=== PATIENT | male | born 1970 | race Hispanic/Latino ===

== ENCOUNTER 2018-10-31 06:06 | Inpatient (IN) | payer OTHER, SELFPAY ==
[2018-10-31] MEDS ORDERED: Ketorolac Tromethamine 30 MG/ML VIAL ONE (06:11)
[2018-10-31] MEDS ORDERED: Fentanyl 100 MCG/2 ML VIAL ONE ×3 (06:15→06:46)
[2018-10-31] MEDS ORDERED: Adacel (T-DAP) 0.5 ML SYRINGE ONE (06:21)
[2018-10-31 06:31] LABS: Hemoglobin 17.5 g/dL (14.0-18.0); Mean Corpuscular HGB CONC 34.4 g/dL (32.0-36.0); Mean Corpuscular Hemoglobin 30.3 pg (27.0-31.0); Mean Corpuscular Volume 88.1 fL (78.0-98.0); Mean Platelet Volume 7.3 fL (7.4-10.4); Platelet Count 310 thou/uL (130-400); RBC Distribution Width 11.7 % (11.5-14.5); Red Blood Cell (RBC) Count 5.78 mill/uL (4.70-6.10); White Blood Cell (WBC) Count 21.9 thou/uL (4.8-10.8)
[2018-10-31] MEDS ORDERED: Lidocaine 1% PF 5 ML VIAL ONE (06:36)
[2018-10-31 06:41] LABS: PTT 25.7 SEC (22.9-36.1); Prothrombin Time 13.1 SEC (12.0-14.7)
[2018-10-31 06:45] LABS: ALT (SGPT) 108 U/L (8-55); AST (SGOT) 84 U/L (5-34); Acetaminophen Less than 6.0 mcg/mL (10.0-30.0); Albumin 4.2 g/dL (3.5-5.0); Alcohol Less than 10 mg/dL (Less than 10); Alkaline Phosphatase 57 U/L (40-150); Anion Gap 10 mmol/L (10-20); BUN (Urea Nitrogen) 24 mg/dL (8.9-20.6); Bilirubin, Total 0.5 mg/dL (0.2-1.2); Calc. Creatinine Clearance 0 mL/min (70-130); Carbon Dioxide 26 mmol/L (22-29); Chloride 105 mmol/L (98-107); Estimated GFR-MDRD 63; Globulin 2.9 g/dL (2.4-3.5); Glucose 157 mg/dL (70-105); Magnesium 2.1 mg/dL (1.6-2.6); Potassium 4.2 mmol/L (3.5-5.1); Protein, Total 7.1 g/dL (6.0-8.3); Salicylate Less than 8.0 mg/dL (15.0-30.0); Sodium 137 mmol/L (136-145)
[2018-10-31] MEDS ORDERED: Promethazine HCl 25 MG/ML VIAL IM PRN (06:52)
[2018-10-31] MEDS ORDERED: Ondansetron PF 4 MG/2 ML Vial IVP PRN (06:52)
[2018-10-31] MEDS ORDERED: Dextrose 5% in Water 1,000 ML IV PRN (06:52)
[2018-10-31] MEDS ORDERED: hydrALAZINE 20 MG/ML VIAL SLOW IVP PRN (06:52)
[2018-10-31] MEDS ORDERED: Dextrose 50% Abboject 50 ML SYRINGE SLOW IVP PRN (06:52)
[2018-10-31] MEDS ORDERED: Rib Fracture Protocol PO SCH (07:00)
[2018-10-31 07:36] LABS: Band 12 % (5-11); Eosinophils 1 % (0-10); Lymphocytes 24 % (21-51); MDiff Complete? YES; Monocytes 1 % (0-10); Neutrophil 61 % (42-75); RBC Morphology Normal; Reactive Lymphocytes 1 % (0-10)
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
[2018-10-31 08:16] LABS: Bacteria/HPF None Seen HPF (None Seen); Bilirubin Negative (Negative); Blood, Urine 1+ (Negative); Clarity Clear (Clear); Glucose, Urine (Dipstick) Normal (Negative); Leukocyte Negative Leu/uL (Negative); Nitrite Negative (Negative); Protein, Urine (Dipstick) Negative (Neg-Trace); RBC/HPF 0-3 HPF (0-3); Squamous Epithelial None Seen HPF (0-3); Urobilinogen Normal mg/dL (Less than 2); WBC/HPF 0-3 HPF (0-3)
[2018-10-31 08:25] LABS: Amphetamine Not Detected (NotDetected); Barbiturates Screen Not Detected (NotDetected); Benzodiazepine Screen Not Detected (NotDetected); Cocaine Metabolite Screen Not Detected (NotDetected); Medtox Control Line Valid? VALID (VALID); Medtox Reader # READER 4; Methadone Not Detected (NotDetected); Methamphetamine Not Detected (NotDetected); Opiate Screen Not Detected (NotDetected); Oxycodone Screen Not Detected (NotDetected); Phencyclidine (PCP) Not Detected (NotDetected); THC/Cannabinoid Screen Not Detected (NotDetected); Tricyclic Screen Not Detected (NotDetected)
[2018-10-31] MEDS ORDERED: Morphine 4 MG/ML VIAL ONE ×2 (08:50→09:53)
[2018-10-31] MEDS ORDERED: Ondansetron PF 4 MG/2 ML Vial ONE (08:54)
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
[2018-10-31] MEDS ORDERED: Lidocaine 1% w/Epinephrine 1:100K 20 ML VIAL ONE (09:54)
--- NOTE | 2018-10-31 10:03 | RAD ---
PELVIS RADIOGRAPH FRONTAL: 10/31/2018 HISTORY: Injury, trauma, pain. COMPARISON: None. FINDINGS: There is no widening of the sacroiliac joints or pubic symphysis. The femoral heads project normally over their respective acetabulum. No displaced pelvic fracture is seen. IMPRESSION: No displaced fracture within the pelvis. POS: OFF
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
[2018-10-31] MEDS: Morphine 4 MG/ML VIAL SLOW IVP PRN ×2 (12:41→15:25)
[2018-10-31] MEDS: Sodium Chloride 0.9% 1,000 ML IV SCH ×3 (12:46→17:40)
[2018-10-31] MEDS: Ibuprofen 800 MG TAB PO SCH ×2 (12:47→18:56)
[2018-10-31] MEDS: traMADol HCl 50 MG TAB PO SCH ×3 (12:47→23:18)
[2018-10-31] MEDS: Acetaminophen 500 MG TAB PO SCH ×3 (12:47→23:18)
[2018-10-31 12:50] VITALS: BMI 33.0
[2018-10-31] MEDS ORDERED: ISOVUE-370 76%-LOCM 1 ML ONE (15:24)
[2018-10-31] MEDS: Gabapentin 300 MG CAP PO SCH ×2 (16:34→23:18)
[2018-10-31] MEDS ORDERED: Acetaminophen 1,000 MG in Premix Bag 1 BAG IVPB SCH (17:00)
[2018-10-31] MEDS ORDERED: Ketorolac Tromethamine 30 MG/ML VIAL IVP SCH (17:00)
[2018-11-01] MEDS: Ibuprofen 800 MG TAB PO SCH ×4 (01:20→18:41)
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
[2018-11-01] MEDS: Sodium Chloride 0.9% 1,000 ML IV SCH (03:08)
[2018-11-01] MEDS: traMADol HCl 50 MG TAB PO SCH ×3 (05:58→18:41)
[2018-11-01] MEDS: Acetaminophen 500 MG TAB PO SCH ×3 (05:58→18:41)
[2018-11-01 06:16] LABS: #Lymphocytes 1.6 thou/uL (1.20-3.40); #Monocytes 1.2 thou/uL (0.11-0.59); %Eosinophils 0.1 % (0.0-10.0); %Lymphocytes 13.6 % (21.0-51.0); %Neutrophils 76.2 % (42.0-75.0); Hemoglobin 14.9 g/dL (14.0-18.0); Mean Corpuscular HGB CONC 32.8 g/dL (32.0-36.0); Mean Corpuscular Volume 88.6 fL (78.0-98.0); Mean Platelet Volume 7.4 fL (7.4-10.4); Platelet Count 236 thou/uL (130-400); RBC Distribution Width 11.9 % (11.5-14.5); Red Blood Cell (RBC) Count 5.12 mill/uL (4.70-6.10); White Blood Cell (WBC) Count 11.8 thou/uL (4.8-10.8)
[2018-11-01 06:30] LABS: Anion Gap 10 mmol/L (10-20); BUN (Urea Nitrogen) 20 mg/dL (8.9-20.6); Calc. Creatinine Clearance 177 mL/min (70-130); Calcium 8.4 mg/dL (7.8-10.44); Carbon Dioxide 24 mmol/L (22-29); Chloride 105 mmol/L (98-107); Estimated GFR-MDRD Greater than 90; Glucose 119 mg/dL (70-105); Phosphorus 2.9 mg/dL (2.3-4.7); Potassium 3.8 mmol/L (3.5-5.1); Sodium 135 mmol/L (136-145)
[2018-11-01] MEDS: Gabapentin 300 MG CAP PO SCH ×3 (08:46→20:38)
[2018-11-01] MEDS: Enoxaparin Sodium 30 MG/0.3 ML SYRINGE SC SCH ×2 (08:46→20:38)
--- NOTE | 2018-11-01 08:53 | RAD ---
PORTABLE CHEST ONE VIEW: HISTORY: Right hemopneumothorax. COMPARISON: 10/31/2018 FINDINGS: Right chest tube in place. Slightly improving subcutaneous emphysema. Multiple right rib fractures. There is no significant pneumothorax, although certainly a small pneumothorax would be very difficu lt to exclude, given the pleural and parenchymal opacity changes and the extensive subcutaneous emphy sema. Continued short-term followup. POS: [facility]
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
[2018-11-01] MEDS: Cyclobenzaprine 10 MG TAB PO PRN (14:44)
[2018-11-01] MEDS: Senokot S 8.6-50 MG TAB PO SCH (20:38)
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
[2018-11-02] MEDS: Ibuprofen 800 MG TAB PO SCH ×5 (00:25→23:49)
[2018-11-02] MEDS: Acetaminophen 500 MG TAB PO SCH ×5 (00:25→23:48)
[2018-11-02] MEDS: traMADol HCl 50 MG TAB PO SCH ×5 (00:25→23:49)
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
[2018-11-02] MEDS: Senokot S 8.6-50 MG TAB PO SCH ×2 (09:15→20:51)
[2018-11-02] MEDS: Polyethylene Glycol 3350 17 GM Packet PO SCH (09:17)
[2018-11-02] MEDS: Gabapentin 300 MG CAP PO SCH ×3 (09:17→20:51)
[2018-11-02] MEDS: Enoxaparin Sodium 30 MG/0.3 ML SYRINGE SC SCH ×2 (09:18→20:51)
[2018-11-02] MEDS: cloNIDine 0.1 MG TAB PO SCH ×3 (10:32→21:39)
[2018-11-02] MEDS: Cyclobenzaprine 10 MG TAB PO PRN (20:51)
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
[2018-11-03] MEDS: cloNIDine 0.1 MG TAB PO SCH ×4 (04:13→20:21)
[2018-11-03] MEDS: Acetaminophen 500 MG TAB PO SCH ×4 (05:48→23:24)
[2018-11-03] MEDS: traMADol HCl 50 MG TAB PO SCH ×4 (05:49→23:23)
[2018-11-03] MEDS: Ibuprofen 800 MG TAB PO SCH ×4 (05:49→23:23)
[2018-11-03] MEDS: Senokot S 8.6-50 MG TAB PO SCH ×2 (08:59→20:20)
[2018-11-03] MEDS: Enoxaparin Sodium 30 MG/0.3 ML SYRINGE SC SCH ×2 (08:59→20:19)
[2018-11-03] MEDS: Gabapentin 300 MG CAP PO SCH ×3 (08:59→20:21)
--- NOTE | 2018-11-03 08:59 | RAD ---
CHEST 1 VIEW: INDICATION: History of followup right-sided pneumothorax. FINDINGS: Small right apical pneumothorax persists. Right side thoracostomy tube and chest wall emphysema is s imilar appearing. Elevation of the right hemidiaphragm is stable. Heart size is stable. Left lung is clear. IMPRESSION: Stable right apical pneumothorax. POS: OFF
[2018-11-03] MEDS: Polyethylene Glycol 3350 17 GM Packet PO SCH (09:03)
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
[2018-11-03] MEDS: Cyclobenzaprine 10 MG TAB PO PRN (20:20)
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
[2018-11-04] MEDS: cloNIDine 0.1 MG TAB PO SCH ×4 (04:53→20:23)
[2018-11-04] MEDS: Ibuprofen 800 MG TAB PO SCH ×4 (04:55→23:27)
[2018-11-04] MEDS: traMADol HCl 50 MG TAB PO SCH ×4 (04:55→23:27)
[2018-11-04] MEDS: Acetaminophen 500 MG TAB PO SCH ×4 (04:56→23:27)
--- NOTE | 2018-11-04 08:04 | RAD ---
EXAM: Portable chest PROVIDED CLINICAL HISTORY: History of pneumothorax COMPARISON: 11/03/2018 FINDINGS: Significant interval change with respect to the prior examination is not apparent. IMPRESSION: As above.
[2018-11-04] MEDS: Senokot S 8.6-50 MG TAB PO SCH ×2 (09:11→20:24)
[2018-11-04] MEDS: Gabapentin 300 MG CAP PO SCH ×3 (09:11→20:24)
[2018-11-04] MEDS: Polyethylene Glycol 3350 17 GM Packet PO SCH (09:11)
[2018-11-04] MEDS: Enoxaparin Sodium 30 MG/0.3 ML SYRINGE SC SCH ×2 (09:17→20:26)
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
--- NOTE | 2018-11-05 00:36 | EKG ---
Test Reason : Blood Pressure : / mmHG Vent. Rate : 108 BPM Atrial Rate : 108 BPM P-R Int : 152 ms QRS Dur : 082 ms QT Int : 338 ms P-R-T Axes : 052 033 029 degrees QTc Int : 452 ms Sinus tachycardia Low voltage QRS Inferior infarct , age undetermined Abnormal ECG Confirmed by OLAMIDE MORAN ([id number]), editor greeting card SARAH LEUNG ([id number]) on 11/05/2018 12:35:17 AM Referred By: Confirmed By:OLAMIDE MORAN
[2018-11-05] MEDS: cloNIDine 0.1 MG TAB PO SCH ×3 (04:25→11:26)
[2018-11-05] MEDS: Acetaminophen 500 MG TAB PO SCH ×2 (05:19→11:26)
[2018-11-05] MEDS: Ibuprofen 800 MG TAB PO SCH ×2 (05:19→11:26)
[2018-11-05] MEDS: traMADol HCl 50 MG TAB PO SCH ×2 (05:20→11:27)
--- NOTE | 2018-11-05 07:34 | RAD ---
EXAM: Portable chest PROVIDED CLINICAL HISTORY: History of pneumothorax COMPARISON: 11/04/2018 FINDINGS: Interval removal of right-sided chest tube. Additional significant interval change with respect to th e prior examination is not apparent. IMPRESSION: As above.
[2018-11-05] MEDS: Senokot S 8.6-50 MG TAB PO SCH (08:54)
[2018-11-05] MEDS: Gabapentin 300 MG CAP PO SCH (08:54)
[2018-11-05] MEDS: Enoxaparin Sodium 30 MG/0.3 ML SYRINGE SC SCH (08:54)
[2018-11-05] MEDS: Polyethylene Glycol 3350 17 GM Packet PO SCH (08:54)
[2018-11-05 11:45] VITALS: BP 135/90; TEMP 97.3
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
== END 2018-11-05 11:45 | disposition home or self-care (01) | DRG 200 ==
LOC: ERS 06:06 → ERHOLD 07:24 → IMCU/EMU 11:56 → SURG B 11-01 13:43
PROVIDERS: ADMIT Surgery; ATTEND Surgery
PROC: 0W9930Z Drainage of Right Pleural Cavity with Drainage Device, Percutaneous Approach (ICD-10-PCS; principal; 2018-10-31)
DX: S27.2XXA Traumatic hemopneumothorax, initial encounter (principal); S22.41XA Multiple fractures of ribs, right side, initial encounter for closed fracture; S27.321A Contusion of lung, unilateral, initial encounter; S51.011A Laceration without foreign body of right elbow, initial encounter; S42.101A Fracture of unspecified part of scapula, right shoulder, initial encounter for closed fracture; Z96.611 Presence of right artificial shoulder joint; V29.9XXA Motorcycle rider (driver) (passenger) injured in unspecified traffic accident, initial encounter; Y93.I9 Activity, other involving external motion; Y92.415 Exit ramp or entrance ramp of street or highway as the place of occurrence of the external cause; Z90.49 Acquired absence of other specified parts of digestive tract
CPT/HCPCS: 36415; 36430; 51702; 70450; 71045; 71260; 72125; 72170; 74177; 80048; 80053; 80306; 80307; 81003; 81015; 83605; 83735; 84100; 84484; 85025; 85610; 85730; 86850; 86900; 86901; 90471; 90715; 93005; 94640; 96361; 96365; 96375; 96376; G0390; J0131; J0690; J1650; J1885; J2001; J2270; J2405; J3010; J7620; P9016; Q9966